=== PATIENT | male | born 1950 | race Caucasian/White ===

== ENCOUNTER 2018-02-25 03:54 | Inpatient (IN) | payer MEDICARE, OTHER ==
[2018-02-25] MEDS ORDERED: NEOSTIGMINE 3 MG/3 ML SYRINGE ×3 (07:00→11:58)
[2018-02-25 07:16] LABS: ADD MAN DIFF? NO
[2018-02-25] MEDS: MAGNESIUM SULFATE 2 GM/50 ML 50 ML IVPB (07:16)
[2018-02-25] MEDS: ONDANSETRON 4 MG INJ IV ×2 (07:16→12:44)
[2018-02-25] MEDS: SOD CHLORIDE 0.9% 1,000 ML IV (07:17)
[2018-02-25] MEDS: morphine 4 MG/ML VIAL IV (07:17)
[2018-02-25 07:26] LABS: WHITE BLOOD COUNT 12.5 10^3/ul (4.8-10.8)
[2018-02-25 07:26] LABS: BASOPHILS % 0.2 % (0.0-2.0); EOSINOPHILS # 0.1 10^3/ul (0.0-0.5); EOSINOPHILS % 0.4 % (0.0-7.0); HEMATOCRIT 38.1 % (42.0-52.0); HEMOGLOBIN 12.7 g/dl (14.0-18.0); LYMPHOCYTES # 1.6 10^3/ul (0.8-2.9); LYMPHOCYTES % 12.4 % (15.0-51.0); MEAN CORPUSCULAR HGB CONC 33.3 g/dl (32.0-37.0); MEAN CORPUSCULAR VOLUME 89.9 fl (82.0-101.0); MEAN PLATELET VOLUME 12.2 fl (7.4-10.4); MONOCYTE # 1.3 10^3/ul (0.3-0.9); MONOCYTES % 10.7 % (0.0-11.0); NEUTROPHIL # 9.5 10^3/ul (1.6-7.5); NEUTROPHILS % 75.9 % (39.0-77.0); PLATELET COUNT 134 10^3/UL (140-415); RED BLOOD COUNT 4.24 10^6/ul (4.70-6.10); RED CELL DISTRIBUTION WIDTH 12.6 % (11.5-14.5)
[2018-02-25 07:47] LABS: ALANINE AMINOTRANSFERASE 30 IU/L (13-69); ALBUMIN 3.9 g/dl (3.3-4.9); ALBUMIN/GLOBULIN RATIO 1.18; ALKALINE PHOSPHATASE 85 IU/L (42-121); ANION GAP 17 (8-16); ASPARTATE AMINO TRANSFERASE 25 IU/L (15-46); BILIRUBIN,INDIRECT 0.7 mg/dl (0-1.1); BILIRUBIN,TOTAL 0.7 mg/dl (0.2-1.3); BLOOD UREA NITROGEN 23 mg/dl (7-20); CALCIUM 8.7 mg/dl (8.4-10.2); CARBON DIOXIDE 23 mmol/L (21-31); CHLORIDE 106 mmol/L (97-110); GLUCOSE 200 mg/dl (70-220); LIPASE 40 U/L (23-300); POTASSIUM 3.9 mmol/L (3.5-5.1); SODIUM 142 mmol/L (135-144); TOTAL PROTEIN 7.2 g/dl (6.1-8.1)
[2018-02-25 07:50] LABS: INR 0.95; PROTIME 12.8 Sec (11.9-14.9)
[2018-02-25 07:51] LABS: PARTIAL THROMBOPLASTIN TIME 36.5 Sec (25.0-35.0)
[2018-02-25] MEDS: PIPER-TAZO 3.375 GM IV (PMX) 100 ML IVPB ×3 (09:31→21:54)
[2018-02-25] MEDS ORDERED: FENTAnyl 50 MCG/ML VIAL (10:56)
[2018-02-25] MEDS ORDERED: GLYCOPYRROLATE 0.4 MG INJ (10:56)
[2018-02-25] MEDS ORDERED: PROPOFOL 20 ML (10:56)
[2018-02-25] MEDS ORDERED: LIDOCAINE 2% (SDV) 5 ML INJ (10:56)
[2018-02-25] MEDS ORDERED: ROCURONIUM 50 MG INJ (10:56)
[2018-02-25] MEDS ORDERED: MIDAZOLAM 1 MG/ML 2 ML INJ (10:56)
[2018-02-25] MEDS ORDERED: ONDANSETRON 4 MG INJ (10:57)
[2018-02-25] MEDS ORDERED: DEXAMETHASONE 4 MG/ML 1 ML INJ (10:57)
[2018-02-25] MEDS: BUPIVACAINE 0.25% (MPF) 30 ML INJ (11:33)
[2018-02-25] MEDS ORDERED: SUCCINYLCHOLINE CHLORIDE 100 MG/5 ML SYG IV (11:35)
[2018-02-25] MEDS ORDERED: SUGAMMADEX SODIUM 200 MG/2 ML VIAL IV (11:52)
[2018-02-25] MEDS ORDERED: OXYCODONE/ACETAMINOPHEN (5/325) TAB PO (12:00)
[2018-02-25] MEDS: morphine 2 MG INJ IV (12:44)
[2018-02-25] MEDS ORDERED: hydrALAzine 20 MG INJ IV (14:00)
[2018-02-25] MEDS ORDERED: HYDROmorphONE 1 MG/5 ML IV SYRINGE IV ×3 (14:00)
[2018-02-25] MEDS ORDERED: ONDANSETRON 4 MG INJ IV (14:00)
[2018-02-25] MEDS ORDERED: GLUCAGON 1 MG INJ IM (17:00)
[2018-02-25] MEDS ORDERED: GLUCOSE GEL 15 GRAM TUBE BUCCAL (17:00)
[2018-02-25] MEDS ORDERED: GLUCOSE GEL 15 GRAM TUBE PO ×2 (17:00)
[2018-02-25] MEDS ORDERED: DEXTROSE 50% 50 ML SYRINGE IV ×2 (17:00)
[2018-02-25 17:49] LABS: ANION GAP 13 (8-16); BLOOD UREA NITROGEN 16 mg/dl (7-20); CALCIUM 8.3 mg/dl (8.4-10.2); CARBON DIOXIDE 21 mmol/L (21-31); CHLORIDE 108 mmol/L (97-110); CREATININE 0.78 mg/dl (0.61-1.24); GLUCOSE 272 mg/dl (70-220); POTASSIUM 4.2 mmol/L (3.5-5.1); SODIUM 138 mmol/L (135-144)
[2018-02-25] MEDS: INSULIN ASPART [NOVOLOG] 3 ML PEN SC ×3 (18:14→21:57)
[2018-02-25] MEDS: INSULIN GLARGINE [LANTus] (100 UNITS/ML) SYG SC (21:58)
[2018-02-26] MEDS: OXYCODONE/ACETAMINOPHEN (5/325) TAB PO (01:49)
[2018-02-26] MEDS: PIPER-TAZO 3.375 GM IV (PMX) 100 ML IVPB (05:23)
[2018-02-26 05:40] LABS: WHITE BLOOD COUNT 9.1 10^3/ul (4.8-10.8)
[2018-02-26 05:40] LABS: ADD MAN DIFF? NO; BASOPHILS % 0.1 % (0.0-2.0); HEMATOCRIT 33.6 % (42.0-52.0); HEMOGLOBIN 11.4 g/dl (14.0-18.0); LYMPHOCYTES # 0.8 10^3/ul (0.8-2.9); LYMPHOCYTES % 9.2 % (15.0-51.0); MEAN CORPUSCULAR HEMOGLOBIN 29.6 pg (29.0-33.0); MEAN CORPUSCULAR HGB CONC 33.9 g/dl (32.0-37.0); MEAN CORPUSCULAR VOLUME 87.3 fl (82.0-101.0); MEAN PLATELET VOLUME 12.6 fl (7.4-10.4); MONOCYTE # 0.9 10^3/ul (0.3-0.9); MONOCYTES % 9.6 % (0.0-11.0); NEUTROPHIL # 7.3 10^3/ul (1.6-7.5); NEUTROPHILS % 80.8 % (39.0-77.0); PLATELET COUNT 112 10^3/UL (140-415); RED BLOOD COUNT 3.85 10^6/ul (4.70-6.10); RED CELL DISTRIBUTION WIDTH 12.3 % (11.5-14.5)
[2018-02-26 06:10] LABS: MAGNESIUM 2.5 mg/dl (1.7-2.5)
[2018-02-26 06:10] LABS: PHOSPHORUS 2.9 mg/dl (2.5-4.9)
[2018-02-26 06:25] LABS: ALANINE AMINOTRANSFERASE 25 IU/L (13-69); ALBUMIN 3.6 g/dl (3.3-4.9); ALBUMIN/GLOBULIN RATIO 1.16; ALKALINE PHOSPHATASE 73 IU/L (42-121); ANION GAP 15 (8-16); ASPARTATE AMINO TRANSFERASE 22 IU/L (15-46); BILIRUBIN,INDIRECT 0.6 mg/dl (0-1.1); BILIRUBIN,TOTAL 0.6 mg/dl (0.2-1.3); BLOOD UREA NITROGEN 19 mg/dl (7-20); CALCIUM 8.2 mg/dl (8.4-10.2); CARBON DIOXIDE 22 mmol/L (21-31); CHLORIDE 106 mmol/L (97-110); CREATININE 0.85 mg/dl (0.61-1.24); GLUCOSE 233 mg/dl (70-220); POTASSIUM 4.1 mmol/L (3.5-5.1); SODIUM 139 mmol/L (135-144); TOTAL PROTEIN 6.7 g/dl (6.1-8.1)
[2018-02-26 06:39] LABS: FREE T4 (FREE THYROXINE) 1.78 ng/dl (0.78-2.44)
[2018-02-26 07:31] LABS: CHOLESTEROL 150 mg/dl (100-200)
[2018-02-26 07:31] LABS: CHOL/HDL RATIO 4.8 RATIO; HDL CHOLESTEROL 31 mg/dl (30-78); LDL CHOLESTEROL,CALCULATED 105 mg/dl; TRIGLYCERIDES 71 mg/dl (0-149)
[2018-02-26] MEDS: INSULIN ASPART [NOVOLOG] 3 ML PEN SC ×4 (08:45→12:33)
[2018-02-26 09:09] LABS: HEMOGLOBIN A1C 6.7 % (0-5.9)
[2018-02-26 09:48] LABS: THYROID STIMULATING HORMONE 0.222 MIU/L (0.465-4.680)
== END 2018-02-26 14:30 | disposition home or self-care (01) | DRG 340 ==
LOC: E/R 03:54 → SDS 09:49 → PP2 17:36
PROVIDERS: Internal Medicine
PROC: 0DTJ4ZZ Resection of Appendix, Percutaneous Endoscopic Approach (ICD-10-PCS; principal; 2018-02-25 10:30)
DX: K35.3 Acute appendicitis with localized peritonitis (principal); E11.9 Type 2 diabetes mellitus without complications; I10 Essential (primary) hypertension; E66.9 Obesity, unspecified; Z68.34 Body mass index [BMI] 34.0-34.9, adult; Z79.4 Long term (current) use of insulin
CPT/HCPCS: 36415; 74176; 80048; 80053; 80061; 82962; 83036; 83690; 83735; 84100; 84439; 84443; 84484; 85025; 85610; 85730; 87040; 88304; 93005; 96374; 96375; 99285-25